=== PATIENT | male | born 1990 | race Caucasian/White ===

== ENCOUNTER 2016-05-08 07:25 | Emergency (ER) | payer OTHER ==
[~2016-05-08] VITALS: Ht 185.4 cm; Wt 72.6 kg
--- NOTE | 2016-05-08 08:03 | ED GI/GU/ABDOMINAL COMPLAINT ---
History of Present Illness General Chief Complaint: Abdominal Pain/Flank Pain Stated Complaint: ABDM PAIN N/V/D WITH FEVER Source: patient, old records Exam Limitations: no limitations Vital Signs & Intake/Output Vital Signs & Intake/Output Vital Signs Date Time Temp Pulse Resp B/P Pulse O2 O2 Flow FiO2 Ox Delivery Rate 05/08 1022 98.0 97 20 13/59 99 Room Air Room Air 05/08 0729 97.9 93 20 109/72 95 Room Air Allergies Coded Allergies: NO KNOWN ALLERGIES (09/19/12) Reconcile Medications Dicyclomine Hydrochloride (Bentyl) 10 MG CAPSULE 1 CAP PO TID ABDOMINAL PAIN Triage Note: ABDOMINAL PAIN WITH N/V/D X 3 DAYS. PT STATES WAVES OF MID ABDOMINAL PAIN THAT IS STABBING AND CRAMPING IN NATURE. PT STATES HE FEELS LIGHTHEADED AND HAS HAD A FEVER ALSO Triage Nurses Notes Reviewed? yes Onset: Abrupt Duration: day(s): (3), intermittent, waxing and waning Timing: recent history Quality/Severity: aching, cramping Severity Numbers: 3 Location: generalized abdomen Radiation: no radiation Activities at Onset: none Prior Abdominal Problems: none No Modifying Factors: none Associated Symptoms: diarrhea, nausea/vomiting HPI: 25-year-old male with history of reflux presents complaining of a one-day history of generalized abdominal pain that is nonradiating associated with 3 day history of nausea vomiting and diarrhea. He denies sick contacts or recent travel. No black or bloody stools no hematemesis no chest pain no back pain no urinary complaints. He has not taken anything for his symptoms. He went to an urgent care last night and was prescribed Zofran which has helped with the nausea however states the pain persists. Has not taken anything specifically for pain. No fever no chills. Nothing makes the pain better or worse and states it comes on intermittently in waves lasting for a few minutes and resolving on its own. (SRINI SERRANO) Past History Travel History Traveled to [place] past 21 day No Medical History Any Pertinent Medical History? none Surgical History Surgical History: none Psychosocial History What is your primary language [place] Tobacco Use: Never used ETOH Use: occasional use Illicit Drug Use: denies illicit drug use Family History Hx Contributory? No (SRINI SERRANO) Review of Systems Review of Systems Constitutional: Reports: see HPI. All Other Systems: Reviewed and Negative Comments Review of systems: See HPI, All other systems negative. Constitutional, no chills no fever, no malaise HEENT: no sore throat no congestion, no ear pain Cardiovascular: No chest pain , no palpitation Skin, no jaundice no rashes, no change in skin Respiratory: No dyspnea no cough no sputum GI: nausea vomiting, \ diarrhea, no bloating/constipation : No dysuria No hematuria, no frequency, no discharge Muscle skeletal: No joint pain, no joint swelling, no back pain, no neck pain, Neurologic: No numbness no headache Psych: No stress Heme/endocrine: No bruising no bleeding Immunology: No lymphadenopathY (SRINI SERRANO) Physical Exam Physical Exam General Appearance: well developed/nourished, no apparent distress, alert, awake Gastrointestinal: soft Comments: Well-developed well-nourished person in no acute distress HEENT: Normal EENT exam; PERRL, EOMI, no nystagmus. HEAD is atraumatic. moist mucous membranes. Neck: Supple, normal range of motion without pain or tenderness Back: Nontender, no CVA tenderness. Full range of motion Cardiovascular: Regular rate and rhythms no murmurs rubs Respiratory: No respiratory distress. Patient speaking in full complete sentences. Breath sounds clear to auscultation bilaterally: NO W/R/R Abdomen: Soft, nontender nondistended, no appreciable organomegaly. Normal bowel sounds. No rebound/guarding, No ascites. No peritoneal signs negative Rovsing sign Extremity: No edema, full range of motion of extremities Neuro: Alert oriented x3, motor sensory normal. There were no obvious focal neurologic abnormalities. Skin: No appreciable rash on exposed skin, skin is warm and dry. Psych: Mood and affect is normal, memory and judgment is normal. Core Measures ACS in differential dx? No Severe Sepsis Present: No Septic Shock Present: No (SRINI SERRANO) Progress Differential Diagnosis: appendicitis, biliary colic, bowel obstruction, colon cancer, cholecystitis, diverticulitis, esophageal varices, gastritis, hepatitis, hernia, ischemic bowel, inflamm bowel dis, Yessi-Moi tear, orchitis, pancreatitis, prostatitis, peptic ulcer, PUD/GERD, perforated viscous, SBO, ureterolithiasis Plan of Care: Orders Procedure Date/time Status Saline Lock 05/08 08 Active LIPASE 01/04 0809 Complete COMPREHENSIVE METABOLIC PANEL 05/08 808 Complete CBC WITHOUT DIFFERENTIAL 05/08 808 Complete AMYLASE 05/08 808 Complete Laboratory Tests 05/08/16 0825: Anion Gap 15, Estimated GFR > 60, BUN/Creatinine Ratio 17.8, Glucose 103 H, Calcium 9.2, Total Bilirubin 1.4 H, AST 24, ALT 27, Alkaline Phosphatase 52, Total Protein 7.2, Albumin 4.1, Globulin 3.1, Albumin/Globulin Ratio 1.3, Amylase < 30 L, Lipase 32, CBC w Diff NO MAN DIFF REQ, RBC 4.93, MCV 87.7, MCH 30.3, RDW 12.5, MPV 7.2 L, Gran % 74.8, Lymphocytes % 12.7 L, Monocytes % 11.5 H, Eosinophils % 0.7, Basophils % 0.3, Absolute Granulocytes 4.7, Absolute Lymphocytes 0.8 L, Absolute Monocytes 0.7 H, Absolute Eosinophils 0, Absolute Basophils 0, PUBS MCHC 34.6 Patient medicated with Zofran for Toradol 30 Pepcid 20 IV CAT scan and labs ordered patient appears comfortable at this time abdomen is soft nontender 05/08/2016 9:25:40 AM discussed the patient at length all his lab results pending CAT scan. He's had no episodes of vomiting or diarrhea here we'll continue to monitor reports pain is improved abdomen remains soft nontender 05/08/2016 10:34:19 AM discussed the patient on his lab results again and his CAT scan findings he is tolerating by mouth challenge he has Zofran at home. Prescription for Bentyl was provided advised bland diet clear liquids advance as tolerated return anytime sooner if any concerns. He feels comfortable plan cleared for discharge (HUEY LEON,SRINI) Diagnostic Imaging: Viewed by Me: CT Scan. Discussed w/RAD: CT Scan. Radiology Impression: PATIENT: BLAIRE OLIVEIRA PRESENT AGE: 25 PATIENT ACCOUNT NO: [id number] : 92 LOCATION: [facility] ORDERING PHYSICIAN: SRINI LEON SERVICE DATE: 05/08/16 EXAM TYPE: CAT - CT ABD & PELVIS W IV CONTRAST EXAMINATION: CT ABDOMEN AND PELVIS WITH CONTRAST CLINICAL INFORMATION: Right lower quadrant abdominal pain. Nausea, vomiting, diarrhea. Evaluate for appendicitis. COMPARISON: None. TECHNIQUE: Multidetector volumetric imaging was performed of the abdomen and pelvis before and after the IV administration of 94 mL of Optiray 320 intravenous contrast. Sagittal and coronal reformatted images were obtained on the technologist's workstation. DLP: 310 mGy-cm. FINDINGS: LUNG BASES: The visualized lung bases are unremarkable. LIVER, GALLBLADDER, AND BILIARY TREE: The liver is normal in size, shape, and attenuation. No focal hepatic lesion or biliary ductal dilatation is present. The gallbladder is unremarkable with no evidence of radiopaque gallstones, gallbladder wall thickening, or obvious pericholecystic inflammatory changes. PANCREAS: Unremarkable. SPLEEN: Unremarkable. ADRENAL GLANDS: Unremarkable. KIDNEYS AND URETERS: The kidneys are normal in size, shape , and attenuation. No hydronephrosis, hydroureter, or calculi seen. No perinephric stranding. BLADDER: Unremarkable. GASTROINTESTINAL TRACT: The stomach and small bowel are unremarkable. No dilated loops of bowel or evidence of obstruction. The appendix is normal. No colonic wall thickening or inflammatory change. No free air or free fluid. ABDOMINAL WALL: No significant hernia is appreciated. LYMPH NODES: Normal. VASCULAR: Unremarkable. PELVIC VISCERA: The prostate and seminal vesicles are unremarkable. OSSEOUS STRUCTURES: Unremarkable. IMPRESSION: No acute abnormality. Normal appendix. No acute inflammatory changes. DICTATED BY: RIKI DAVIS MD DATE/TIME DICTATED:08/19 [employer]CHOOL ATHLETIC DIRECTOR:KURT DATE/TIME TRANSCRIBED:05/08/161024 CONFIDENTIAL, DO NOT COPY WITHOUT APPROPRIATE AUTHORIZATION. <Electronically signed in Other Vendor System> SIGNED BY: RIKI DAVIS MD 05/08/16 1030 Initial ED EKG: none (SRINI SERRANO) Departure Departure Time of Disposition: 103 Disposition: HOME OR SELF CARE Condition: Stable Clinical Impression Primary Impression: Nausea & vomiting Referrals: PATIENT HAS NO PRIMARY CARE DR (PCP/Family) Additional Instructions: Continue taking the Zofran as directed that that was already provided to you. Tylenol or Motrin as needed for fever or pain. Bentyl for abdominal pain. [place] diet clear liquids. Advance diet as tolerated Tylenol or Motrin as needed for pain return with any concerns. Departure Forms: Customer Survey General Discharge Information Prescriptions: Current Visit Scripts Dicyclomine Hydrochloride (Bentyl) 1 CAP PO TID #15 CAP (SRINI SERRANO) PA/REWEAVER Co-Sign Statement Statement: ED Attending supervision documentation- [] I saw and evaluated the patient. I have also reviewed all the pertinent lab results and diagnostic results. I agree with the findings and the plan of care as documented in the PA's/REWEAVER's documentation. [X] I have reviewed the ED Record and agree with the PA's/REWEAVER's documentation. [] Additions or exceptions (if any) to the PAs/REWEAVER's note and plan are summarized below: [] (LATISHA MILNER,TAMEKA)
[2016-05-08 08:41] LABS: ABSOLUTE BASOPHIL COUNT 0 /CUMM (0.0-0.2); ABSOLUTE EOSINOPHIL COUNT 0 /CUMM (0.0-0.7); ABSOLUTE GRANULOCYTE CT 4.7 /CUMM (1.4-6.5); ABSOLUTE LYMPH COUNT 0.8 /CUMM (1.2-3.4); ABSOLUTE MONOCYTE COUNT 0.7 /CUMM (0.10-0.60); BASOPHIL % 0.3 % (0.0-2.0); EOSINOPHIL % 0.7 % (0-5); GRANULOCYTE % 74.8 % (42.2-75.2); HEMATOCRIT 43.2 % (42-52); MEAN CORPUSCULAR HGB 30.3 PG (27.0-31.0); MEAN CORPUSCULAR HGB CONC 34.6 G/DL (33.0-37.0); MEAN CORPUSCULAR VOLUME 87.7 FL (80.0-94.0); MEAN PLATELET VOLUME 7.2 FL (7.4-10.4); PLATELET COUNT 179 /CUMM (130-400); RBC DISTRIBUTION WIDTH 12.5 % (11.5-14.5); RED BLOOD CELL CT 4.93 /CUMM (4.70-6.10); WHITE BLOOD CELL COUNT 6.4 /CUMM (4.8-10.8)
[2016-05-08 10:22] VITALS: BP 13/59
--- NOTE | 2016-05-08 10:30 | CT SCAN REPORT ---
EXAMINATION: CT ABDOMEN AND PELVIS WITH CONTRAST CLINICAL INFORMATION: Right lower quadrant abdominal pain. Nausea, vomiting, diarrhea. Evaluate for appendicitis. COMPARISON: None. TECHNIQUE: Multidetector volumetric imaging was performed of the abdomen and pelvis before and after the IV administration of 94 mL of Optiray 320 intravenous contrast. Sagittal and coronal reformatted images were obtained on the technologist's workstation. DLP: 310 mGy-cm. FINDINGS: LUNG BASES: The visualized lung bases are unremarkable. LIVER, GALLBLADDER, AND BILIARY TREE: The liver is normal in size, shape, and attenuation. No focal hepatic lesion or biliary ductal dilatation is present. The gallbladder is unremarkable with no evidence of radiopaque gallstones, gallbladder wall thickening, or obvious pericholecystic inflammatory changes. PANCREAS: Unremarkable. SPLEEN: Unremarkable. ADRENAL GLANDS: Unremarkable. KIDNEYS AND URETERS: The kidneys are normal in size, shape, and attenuation. No hydronephrosis, hydroureter, or calculi seen. No perinephric stranding. BLADDER: Unremarkable. GASTROINTESTINAL TRACT: The stomach and small bowel are unremarkable. No dilated loops of bowel or evidence of obstruction. The appendix is normal. No colonic wall thickening or inflammatory change. No free air or free fluid. ABDOMINAL WALL: No significant hernia is appreciated. LYMPH NODES: Normal. VASCULAR: Unremarkable. PELVIC VISCERA: The prostate and seminal vesicles are unremarkable. OSSEOUS STRUCTURES: Unremarkable. IMPRESSION: No acute abnormality. Normal appendix. No acute inflammatory changes.
[2016-05-08] MEDS ORDERED: BENTYL10 M1 PO (10:35)
== END 2016-05-08 10:43 ==
LOC: ERH 07:25
PROVIDERS: Physician Assistant Medical
DX: R11.2 Nausea with vomiting, unspecified (principal); R19.7 Diarrhea, unspecified; R50.9 Fever, unspecified
CPT/HCPCS: 74177; 96361; 96374; 96375; J1885; J2405